=== PATIENT | female | born 1985 | race African-American/Black ===

== ENCOUNTER 2016-07-18 02:29 | Emergency (ER) | payer BC ==
--- NOTE | ~2016-07-18 | CR72 ---
[facility] A Service of [facility] & [facility] RADIOLOGY TEXT RESULTS PATIENT: MIRNA ESPINOZA LOCATION: SED : 85 UNIT #: [id number] AGE: [address]: Carson Marquez MD SEX: F ORDER DR: [id number] [address] [address] [id number] E MR#: [id number] Acc #: [id number] NAME: MIRNA ESPINOZA : 1985 SEX: F STUDY DATE/TIME: 07/18/2016 03:05 UNIT: SED ROOM: STUDY DESCRIPTION: CR Chest Single View Portable Attending Physician: Carson Marquez M.D. Ordering Physician: Carson Marquez M.D. MEDICAL IMAGING REPORT This report is preliminary unless electronic signature is present. EXAM Portable chest, 07/18 at 03:05 hours INDICATION Cough, congestion, fever, body aches for 5 days. FINDINGS AP portable chest is compared with 06/19/2009. Bibasilar infiltrates are present concerning for pneumonia. There is a small left effusion. Mid to upper lungs are clear. No pneumothorax. Heart size normal. IMPRESSION Bibasilar pneumonia with a small left pleural effusion. Dictated by... Patrice Llamas Jr., M.D. THIS IS AN ELECTRONICALLY VERIFIED REPORT Patrice Llamas Jr., M.D. at 07/18/2016 9:32 PM RUBY/honey TD: 07/18/2016 16:28 JOB #: [id number] MEDICAL IMAGING REPORT
[2016-07-18 02:16] LABS: INFLUENZA A POS (NEG); INFLUENZA B NEG (NEG)
[~2016-07-18 02:29] MED LIST: AMOXIL50 MG/ML PO; AUGMENTIN PO; BUPROPION HCL150 M3; DOXYCYCLINE PO; FAMVIR500 MG PO; HCTZ; IBUPROFEN PO; MEDROL2 MG PO; PREDNISONE PO; VICODIN 5/500 T1 TAB PO; VICODIN PO
== END 2016-07-18 04:04 | disposition home or self-care (01) ==
LOC: SED 02:29
PROVIDERS: Physician Assistant
DX: J12.89 Other viral pneumonia (principal); J90 Pleural effusion, not elsewhere classified; I10 Essential (primary) hypertension; F41.9 Anxiety disorder, unspecified
CPT/HCPCS: 71010; 87804; 94640; 99283

== ENCOUNTER 2016-11-12 09:38 | Emergency (ER) | payer BC ==
--- NOTE | ~2016-11-12 | CR58 ---
[facility] A Service of [facility] & [facility] RADIOLOGY TEXT RESULTS PATIENT: MIRNA ESPINOZA LOCATION: SED : 85 UNIT #: [id number] AGE: [address]: Omar Astorga MD SEX: F ORDER DR: [id number] [address] [address] [id number] E MR#: [id number] Acc #: [id number] NAME: MIRNA ESPINOZA : 1985 SEX: F STUDY DATE/TIME: 11/12/2016 10:21 UNIT: SED ROOM: STUDY DESCRIPTION: CR Cervical Spine 2 or 3 Views Attending Physician: Omar Astorga M.D. Ordering Physician: Omar Astorga M.D. Primary Care Physician: No Primary Care Physician MEDICAL IMAGING REPORT This report is preliminary unless electronic signature is present. EXAM Cervical spine 4 views 11/12/2016 HISTORY Stiff neck, neck pain primarily on right side extending into the right shoulder for 1 week, right upper extremity radiculopathy. No known injury. FINDINGS AP and lateral projections of the cervical spine show satisfactory preservation of the cervical lordosis. The cervical soft tissues are normal. All anterior and posterior elements in the cervical area are anatomically normal without identifiable fracture, dislocation, malignant lytic or sclerotic change, or arthritis. There is no congenital defect apparent. IMPRESSION Normal cervical spine. Dictated by... Owen Williamson M.D. THIS IS AN ELECTRONICALLY VERIFIED REPORT Owen Williamson M.D. at 11/12/2016 6:25 PM KRT/wilmer TD: 11/12/2016 17:20 JOB #: [id number] MEDICAL IMAGING REPORT Page 1 of 1
[2016-11-12] MEDS ORDERED: NO MEDICATIONS (09:43)
== END 2016-11-12 11:43 | disposition home or self-care (01) ==
LOC: SED 09:38
DX: M54.12 Radiculopathy, cervical region (principal); F41.9 Anxiety disorder, unspecified; I10 Essential (primary) hypertension
CPT/HCPCS: 72040; 96372; 99283; J1885